=== PATIENT | male | born 1980 | race African-American/Black ===

== ENCOUNTER 2018-04-22 05:50 | Day surgery (SDC) | payer BC, OTHER ==
[~2018-04-22] VITALS: Ht 180.3 cm; Wt 107.0 kg
--- NOTE | ~2018-04-22 | O ---
[facility] [place] [address] OPERATIVE REPORT Name: MANUELHASMUKH L Room #: DEP [facility]#: [id number] Admission: 04/22/18 Attend Phys: Nishant Chu MD Discharge: 04/22/18 Date of : 80 Report #: [id number] THIS REPORT FOR: //name// CC: [facility] physician/PCP Nishant Chu DATE OF SERVICE: 04/22/2018 PREOPERATIVE DIAGNOSIS: Abdominal pain located at the umbilicus secondary to retained sutures. POSTOPERATIVE DIAGNOSIS: Abdominal pain located at the umbilicus secondary to retained sutures. PROCEDURE PERFORMED: Excision of foreign body x 2. ANESTHESIA: IV sedation, local 0.25% Marcaine. COMPLICATIONS: None. BLOOD LOSS: 2 mL. PROCEDURE NOTE: With the abdomen prepped and draped in a sterile fashion, IV antibiotic was administered. Abdomen was prepped and draped in a sterile fashion. Timeout was performed. After placing 0.25% Marcaine in the upper aspect of the umbilicus, a curvilinear incision was made about 1.5 cm. After incising through the skin and subcutaneous tissue, the suture that was hurting him on the right lateral edge on the right side of the upper umbilicus was found. This was removed. The patient had another stitch that I could feel, but this is probably not the one that was hurting him. It was more to the left of the midline. This was also found in the scar tissue and then removed. No further palpable retained suture found. The wound was irrigated. Cautery was used for hemostasis. The subcutaneous tissue was closed with 4-0 PDS. Skin was closed with 5-0 PDS. The suture material was 0 PDS. The patient was taken to recovery room and tolerated the procedure well. By: [id number] Nishant Chu MD /nt
--- NOTE | ~2018-04-22 | H ---
[facility] [address] [place] [address] HISTORY AND PHYSICAL Name: MANUELHASMUKH Timoteo Room #: PRE [facility]..#: [id number] Admission: Attend Phys: Nishant Chu MD Discharge: Date of : 80 Report #: [id number] THIS REPORT FOR: //name// CC: [facility] physician/PCP Nisahnt Chu DATE OF SERVICE: 04/22/2018 PREOPERATIVE DIAGNOSIS: Abdominal pain just above the umbilicus, likely from a retained suture. HISTORY OF PRESENT ILLNESS: The patient is a 37-year-old who underwent laparoscopic cholecystectomy for pancreatitis, and also laparoscopic appendectomy and repair of umbilical hernia at the same time. This was on 01/30/2018. The patient did well. About a little over a week ago he started noticing pain above the umbilicus, felt like pinching. He was doing fine before that. The patient then developed pretty sharp pain, burning, feeling like being stuck by something there. He has noticed some protrusion at the umbilicus. It felt hard to him. No nausea or vomiting. When he bends or jaja, or if he has a full abdomen, it pushes out more. Bowels are working well. The patient does do heavy work at a warehouse. He does a lot of lifting and bending. The patient went to the Emergency Room and had a workup including a CT scan. CT scan was unremarkable. No evidence of pancreatitis, no evidence of recurrent hernia. He was then found by the ER to have a retained suture at the site of his pain. He came to the office and after reviewing the CT scan and history, I agree that there is a suture there that is causing him the pain. The patient is here for excision of the foreign body. Because of how tender he is, I recommended that this be performed in the hospital under IV sedation. PAST MEDICAL HISTORY: High blood pressure, diabetes. PAST SURGICAL HISTORY: Arthroscopic knee surgery in 2012, laparoscopic cholecystectomy, appendectomy and umbilical hernia repair in 01/2018. MEDICATIONS: Lisinopril 10 mg once a day, metformin 500 twice a day. ALLERGIES: ALLERGIC TO AMBIEN. FAMILY HISTORY: There is cancer, diabetes, high blood pressure in the family. SOCIAL HISTORY: The patient works in a warehouse. He does smoke. He does not drink. REVIEW OF SYSTEMS: History of T6 fracture, history of Aggarwal palsy. No shortness of breath, chest pain, or palpitation. [facility] [address] [place] [address] HISTORY AND PHYSICAL Name: HASMUKH JACKSON Room #: PRE [facility]#: [id number] Admission: Attend Phys: Nishant Chu MD Discharge: Date of : 80 Report #: [id number] PHYSICAL EXAMINATION: GENERAL: The patient is a well-nourished male, in no acute distress. HEENT: Pupils react to light. Extraocular muscles are intact. Oropharynx clear. NECK: Soft and supple, no masses. LUNGS: Clear to auscultation. HEART: Regular rate and rhythm. No murmur or gallop. ABDOMEN: He is tender in the upper part of the umbilicus. There is a stitch there that is quite tender. The patient has no guarding or rigidity. EXTREMITIES: No cyanosis, clubbing or edema. IMPRESSION: The patient has abdominal pain located at the umbilicus. This is likely from a suture that is poking the abdomen. I think the reason why he is feeling it is because he has very little subcutaneous tissue between the skin and the fascia. He is quite tender. I recommend this be excised with IV sedation. The patient is brought in for the procedure. By: [id number] Nishant Chu MD /nt
[~2018-04-22 05:50] MED LIST: GEMFIBROZIL 60600 M1 PO; LISINOPRIL10 MG PO; MELATONIN5 M1 PO; METFORMIN HCL1000 MG PO; METOPROLOL SUCC50 MG PO
[2018-04-22 09:59] VITALS: BP 122/78
[2018-04-22] MEDS ORDERED: HYDROCODON-ACE1 EAC7 PO (11:41)
[2018-04-22 12:07] VITALS: BP 122/78
== END 2018-04-22 12:49 | disposition home or self-care (01) ==
LOC: OR 05:50 → TBA 05:50 → OR 12:49
DX: Z18.89 Other specified retained foreign body fragments (principal); R10.33 Periumbilical pain; I10 Essential (primary) hypertension; K21.9 Gastro-esophageal reflux disease without esophagitis; E11.9 Type 2 diabetes mellitus without complications; F17.210 Nicotine dependence, cigarettes, uncomplicated; Z87.442 Personal history of urinary calculi; Z98.890 Other specified postprocedural states; Z88.8 Allergy status to other drugs, medicaments and biological substances; Z79.899 Other long term (current) drug therapy
CPT/HCPCS: 50010; 50101; 50386; 50403; 56524; 56525; 62110; 62850; 70005